=== PATIENT | female | born 1960 | race Caucasian/White ===

== ENCOUNTER 2024-01-05 05:40 | Day surgery (SDC) | payer OTHER ==
[~2024-01-05] VITALS: Ht 160 cm; Wt 82.9 kg
[~2024-01-05 05:40] MED LIST: AVAPRO300 MG PO; CALCIUM500 MG PO; DICLOFENAC SODI75 MG PO; LACTATED RINGER'S 1,000 ML IV SCH; LEVOTHYROXINE137 MC1 PO; LIPITOR80 MG PO; OMEPRAZOLE20 MG PO; TYLENOL EXTRA500 MG PO; VITAMIN D325 MCG
[2024-01-05 06:02] VITALS: BP 132/80
[2024-01-05] MEDS ORDERED: KETOROLAC TROMETHAMINE 30 MG/ML VIAL ONE ×2 (06:20→06:53)
[2024-01-05] MEDS ORDERED: dexmedeTOMIDine HCl 200 MCG/2 ML VIAL ONE ×2 (06:53→06:54)
[2024-01-05] MEDS ORDERED: fentaNYL citrate 100 MCG/2 ML VIAL ONE (06:53)
[2024-01-05] MEDS ORDERED: DEXAMETHASONE SOD PHOS 4 MG/ML VIAL ONE (06:53)
[2024-01-05] MEDS ORDERED: propofoL 200 MG/20 ML VIAL ONE (06:53)
[2024-01-05] MEDS ORDERED: ondansetron HCL 4 MG/2 ML VIAL ONE (06:53)
[2024-01-05] MEDS ORDERED: LIDOCAINE HCL 2% 5 ML SDV ONE (06:53)
[2024-01-05] MEDS ORDERED: ACETAMINOPHEN 1,000 MG/100 ML VIAL ONE (06:53)
[2024-01-05] MEDS ORDERED: IBLOOD GLUCOSE TEST STRIP 1 EA TEST VI PRN ×2 (07:00→08:00)
[2024-01-05] MEDS ORDERED: LIDOCAINE HCL 1% 5 ML SDV INJ ONE (07:00)
[2024-01-05] MEDS ORDERED: TRANEXAMIC ACID 2,000 MG in SODIUM CHLORIDE 0.9% 100 ML IV SCH (07:00)
[2024-01-05] MEDS ORDERED: CEFAZOLIN SODIUM 2 GM/20 ML SYR IV SCH (07:00)
[2024-01-05] MEDS ORDERED: HYDROCODONE/ACETA 7.5/325 TAB PO PRN (07:00)
[2024-01-05] MEDS ORDERED: ePHEDrine sulfate 50 MG/ML AMP ONE (07:18)
[2024-01-05] MEDS ORDERED: GABAPENTIN300 MG PO (07:31)
[2024-01-05] MEDS ORDERED: HYDROCODON-ACE1 EA11 PO (07:31)
[2024-01-05] MEDS ORDERED: KETOROLAC TROME10 MG PO (07:32)
--- NOTE | 2024-01-05 07:36 | NUR ---
01/05/24 0736 Alcira Li PATIENT WAKES. SHE IS REASSURED. SHE DENIES PAIN.
--- NOTE | 2024-01-05 07:41 | NUR ---
PT GONE FOR PROCEDURE. PROVIDED PRAYER.
[2024-01-05] MEDS ORDERED: NALOXONE HCL 0.4 MG SYR IV PRN (08:00)
[2024-01-05] MEDS ORDERED: ondansetron HCL 4 MG/2 ML VIAL IV PRN (08:00)
[2024-01-05] MEDS ORDERED: fentaNYL citrate 50 MCG/ML SDV IV PRN (08:00)
[2024-01-05 08:09] VITALS: BP 114/61
--- NOTE | 2024-01-05 08:12 | NUR ---
ICED WATER AND CALL LIGHT ARE GIVEN. PATIENT IS SITTING UP IN BED, DRINKING WATER AND TOLERATING THAT WELL.
[2024-01-05] MEDS ORDERED: DICLOFENAC SOD 75 MG TABEC PO SCH (09:00)
[2024-01-05] MEDS ORDERED: GABAPENTIN 300 MG CAP PO SCH (09:00)
[2024-01-05 09:10] VITALS: BP 106/74
--- NOTE | 2024-01-05 09:10 | NUR ---
PT IS DROWSY. RESP EVEN AND UNLABORED. DENIES PAIN. STATES "A LTTLE BIT OF NAUSEA" BUT TOLERABLE. PT ENCOURAGED TO TAKE DEEP BREATHS. PT QUESTIONS WHY, EXPLANATION GIVEN. PT VERBALIZED UNDERSTANDING. NO OTHER NEEDS AT THIS TIME. AT BEDSIDE. CALL LIGHT WITHIN REACH.
--- NOTE | 2024-01-05 09:33 | NUR ---
LE 0845-PT ON CONTINUOUS PULSE OX. PT O2 DECREASED TO 85-87% WHEN PT FALLS ASLEEP. PT WAKES UP TAKES DEEP BREATHS. O2 INCREASES TO 95-99%. PT ENCOURAGED TO TAKE DEEP BREATHS.
--- NOTE | 2024-01-05 09:36 | NUR ---
0930-TALKED WITH TAMERA BARCENAS RE PT. DECREASED 02 SAT WHEN FALLING ASLEEP. WILL KEEP PT LONGER TO MONITOR. PT GIVEN INCENTIVE SPIROMETER AND DEMONSTRATES HOW TO USE IT. PT STAYS ON CONTINUOUS PULSE OX FOR NOW.
[2024-01-05 10:00] VITALS: BP 112/71
--- NOTE | 2024-01-05 10:43 | OR ---
[facility] [address], [place] [address] Signed DATE OF OPERATION: 01/05/2024 SURGEON: Frances Broussard MD PREOPERATIVE DIAGNOSIS: Lateral meniscus tear, left knee. POSTOPERATIVE DIAGNOSES: 1. Lateral meniscus tear, left knee. 2. Significant chondrocalcinosis. PROCEDURE PERFORMED: Left knee arthroscopy with partial lateral meniscectomy. HOME CARE NURSE: None. ANESTHESIA: General. BLOOD LOSS: Minimal. BRIEF HISTORY: Queenie is a 63-year-old female with pain in her knee for some time now. She has been using crutches due to the pain, unable to walk on her leg. She has a history of prior ACL reconstruction this knee. Radiographs were relatively normal. MRI was consistent with a lateral meniscus tear. Risks, benefits, and alternatives of surgery were discussed with her and she elected to proceed. Once consent was obtained, she was taken to the operating room. After adequate anesthesia, she was placed on the operating room table. All downside pressure points were well padded. The right leg was flexed, abducted, and externally rotated on a well-padded leg hartman. The left was placed in a well-padded proximal thigh leg hartman with no tourniquet. The leg was prepped and draped in a standard sterile fashion. Portal sites were injected with 0.25% Marcaine with epinephrine. The standard inferolateral and superolateral portals were made and the scope was introduced in the knee. ARTHROSCOPIC FINDINGS: There was extensive synovitis throughout the knee. 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 Grade 2-3 changes to the trochlea. Medial and Electronically Signed By: FRANCES BROUSSARD MD 01/05/24 1043 PATIENT NAME: SYMONE GONZALES OPERATIVE REPORT DATE OF : 60 REPORT #: [id number] PHYSICIAN: FRANCES BROUSSARD MD PCP: LINA PINEDO DO REPORT IS CONFIDENTIAL AND NOT TO BE RELEASED WITHOUT AUTHORIZATION [facility] [address], [place] [address] Signed lateral gutters were clear. ACL and PCL were intact. The graft appeared relatively good. The medial compartment showed diffuse grade 2 chondromalacia, the meniscus was intact, however, there were significant calcific deposits in all cartilaginous surfaces. The lateral meniscus showed a radial tear at the mid lateral border extending posteriorly. There was again extensive chondrocalcinosis. The lateral compartment showed diffuse grade 3 chondromalacia. DESCRIPTION OF OPERATION: Standard inferomedial portal was established after localization using a spinal needle. The straight and curved biters were then used to trim the lateral meniscus back to a stable rim. The debris was evacuated and the meniscus was feathered out. The scope was withdrawn. Portals were closed with 3-0 nylon and the knee was injected with 60 mg of Toradol. The wounds were dressed with Adaptic, ABD, and Moise wrap. She tolerated the procedure well. All sponge, needle, and instrument counts were correct. Frances Broussard MD BA/MODL /[id number] Copies: ~ Electronically Signed By: FRANCES BROUSSARD MD 01/05/24 1043 PATIENT NAME: SYMONE GONZALES OPERATIVE REPORT DATE OF : 60 REPORT #: [id number] PHYSICIAN: FRANCES BROUSSARD MD PCP: LINA PINEDO DO REPORT IS CONFIDENTIAL AND NOT TO BE RELEASED WITHOUT AUTHORIZATION
--- NOTE | 2024-01-05 13:31 | NUR ---
LE 1010-PT AWAKE. RESP EVEN AND UNLABORED. RATES PAIN 4/10, DECLINES MEDICATION AT THIS TIME. 02 SATS STAYED ABOVE 94% ON RA. PT IS READY TO GO HOME. PT WILL GET DRESSED. CALL LIGHT WITHIN REACH. DISCUSSED WITH PT THE NEED TO SEE HER PCP RE HER O2 SATS DECREASING INTO THE 80'S WHEN FALLING ASLEEP. PT VERBALIZED UNDERSTANDING.
--- NOTE | 2024-01-05 13:38 | NUR ---
CONSTANZA 1025-WENT OVER DISCHARGE INSTRUCTIONS WITH PT AND HER . ALL QUESTIONS ANSWERED. WENT OVER POSTOP MEDICATIONS. PT AMBULATES WITH CRUTCHES TO RESTROOM. PT VOIDS UNMEASURABLE AMOUNT. WHEELCHAIR RIDE PROVIDED TO FRONT OF HOSPITAL WHERE WAS WAITING WITH THE CAR.
== END 2024-01-05 10:25 | disposition home or self-care (01) ==
LOC: DS 05:40
PROVIDERS: ATTEND Specialist
PROC: 0SBD4ZZ Excision of Left Knee Joint, Percutaneous Endoscopic Approach (ICD-10-PCS; principal; 2024-01-05 07:00)
DX: S83.282A Other tear of lateral meniscus, current injury, left knee, initial encounter (principal); M94.262 Chondromalacia, left knee; I10 Essential (primary) hypertension; E78.00 Pure hypercholesterolemia, unspecified; M81.0 Age-related osteoporosis without current pathological fracture; K21.9 Gastro-esophageal reflux disease without esophagitis; Z88.0 Allergy status to penicillin; Z88.5 Allergy status to narcotic agent; Z79.899 Other long term (current) drug therapy; X58.XXXA Exposure to other specified factors, initial encounter
CPT/HCPCS: 01400; J0131; J0690; J1100; J1885; J2001; J2405; J2704; J3010; J7121